=== PATIENT | female | born 1945 | race Caucasian/White ===

== ENCOUNTER → 2016-08-06 | Outpatient (CLI) | payer MEDICARE, OTHER ==
[~2016-08-06] MED LIST: IOHEXOL 100 ML ONE; IOHEXOL 350MG/ML 50 ML BTL ONE; METOPROLOL 100 MG TAB ONE; NITROGLYCERIN AEROSOL (4.9 GM) ONE; SOD CHLORIDE 0.9% 100 ML ONE
--- NOTE | 2016-08-07 11:49 | RADRPT ---
PROCEDURE: CTA OF THE HEART AND CORONARY ARTERIES WITH CONTRAST CT CALCIUM SCORE CLINICAL INDICATION: Chest pain COMPARISON: No previous relevant images are available for comparison. TECHNIQUE: CT calcium score performed without intravenous contrast. Multiphasic ECG-gated volumetri c acquisition from the ascending aorta to the diaphragm performed with intravenous contrast on a hig h-resolution multi detector scanner with multiphasic reconstructions. Multiplanar reconstructions, t hree-dimensional reconstructions, as well as maximal intensity projection images are produced and re viewed. One or more of the following dose reduction techniques were used: Automated exposure control ; Adjustment of the mA and/or kV according to patient size; Use of iterative reconstruction techniqu e; ECG dose modulation. CTDI = 8, 2, 29, 69 mGy. DLP = 1153 mGy-cm. Stenosis classification of vessels greater than 1.5 mm in diameter: None0% Minimal1-24% Trpg30-12% Nksvocsx63-22% Ewunji66-46% Hhlwzesz838% (When a vessel appears focally occluded with distal reconstitution there may be trac e patency which is below the resolution of the examination or collateral pathways may exist.) CONTRAST: 100 mL of Omnipaque 350 intravenously without adverse event. FINDINGS: CORONARY CT ANGIOGRAM: Overall quality of the CT angiographic examination is degraded due to the late phase of enhancement which is predominantly venous, peak aortic enhancement of 232 HU. This was due to difficulty with b reath holding obstruction due to language barrier. Normal origins of the coronary arteries are present. The coronary artery system is right dominant. Total calcium score: 1137.9 Right Coronary Artery: Severe diffuse calcification obscures adequate visualization of luminal enhan cement. Left Main Coronary Artery: Very short segment vessel due to nearly immediate bifurcation. Small lala que does not produce any significant stenosis. Left Anterior Descending Coronary Artery: Calcified plaque within the proximal segment of the vessel produces up to 25% stenosis. Dense confluent calcifications in the mid and distal segments of the vessel obscure visualization of the lumen. Visualized septal and diagonal branches: Dense calcification obscures visualization of the origin of the first diagonal branch. Left Circumflex Coronary Artery: Multifocal calcified and noncalcified plaques produce approximately 50% ; visualization partially degraded due to the nearly concentric nature of these lesions. Visualized obtuse marginal branches: Small-caliber vessels which are not well visualized. Normal appearance of the pericardium. No pericardial effusion. Mild thickening and sclerosis of the trileaflet aortic valve. Minimal thickening of the mitral valv e leaflets. Myocardial attenuation appears within normal limits. Left atrial appendage is well opacified. No evidence of intracardiac mass or thrombus. EXTRACARDIAC FINDINGS: Thoracic aorta: Normal caliber. Pulmonary vessels: Normal caliber pulmonary arteries. No evidence of central filling defect. Conven tional pulmonary venous return. Chest: The visualized lung parenchyma is unremarkable. No mediastinal lymphadenopathy. Abdomen: Incidental imaging of the upper abdomen is unremarkable. IMPRESSION: Total calcium score: 1137.9 Right Coronary Artery: Severe diffuse calcification obscures adequate visualization of luminal enhan cement. Left Main Coronary Artery: Very short segment vessel due to nearly immediate bifurcation. Small lala que does not produce any significant stenosis. Left Anterior Descending Coronary Artery: Calcified plaque within the proximal segment of the vessel produces up to 25% stenosis. Dense confluent calcifications in the mid and distal segments of the vessel obscure visualization of the lumen. Left Circumflex Coronary Artery: Multifocal calcified and noncalcified plaques produce approximately 50% ; visualization partially degraded due to the nearly concentric nature of these lesions. Given these findings additional imaging with nuclear perfusion imaging SPECT/PET or as clinically in dicated conventional coronary angiography suggested for further evaluation. RPTAT: AADD .Sandro Casanova MD, MD Date Time Electronically viewed and signed by .Sandro Casanova MD, on 08/07/2016 11:49 .B/
== END | disposition home or self-care (01) ==
LOC: C/S 09:39
PROVIDERS: ATTEND Internal Medicine Cardiovascular Disease
DX: I25.10 Atherosclerotic heart disease of native coronary artery without angina pectoris (principal); R07.9 Chest pain, unspecified; R06.02 Shortness of breath; I35.8 Other nonrheumatic aortic valve disorders
CPT/HCPCS: 75571; 75574; Q9967

== ENCOUNTER → 2018-03-28 | Outpatient (CLI) | payer MEDICARE, OTHER ==
[~2018-03-28] MED LIST changes: +IODIXANOL LOCM 100 ML BTL ONE; -IOHEXOL 100 ML ONE; -METOPROLOL 100 MG TAB ONE
--- NOTE | 2018-03-28 13:54 | NUR ---
Procedure Ordered: CTA CARDIAC ANGIOGRAM Reason for Exam Today: CHEST PAIN SOB Previous Exams: Allergies: NKA Current Medications Taken: Glucophage ( ) Metformin ( ) Previous reaction to contrast media: Yes ( ) No ( ) : Yes ( ) No (X ) Asthma: Yes ( ) No (X ) Diabetes: Yes ( ) No ( X) Myeloma: Yes ( ) No ( X) Heart Disease: Yes (X ) No ( ) Cardiac Disease: Yes ( X) No (X ) Kidney Disease: Yes ( ) No (X ) Vascular Disease: Yes ( X) No ( ) Patient Teaching done: Yes ( ) No ( ) Poultry Hatchery Supervisor Used: Yes ( ) No ( ) Name of Poultry Hatchery Supervisor: Language Used: As part of the test requested by your doctor, contrast media may be injected into your vein while the x-rays are being taken. Occasionally, reactions from IV contrast may occur. The physician and staff of this hospital are trained to treat these reactions. Select the type of Contrast that will be given to patient: Isovue 300 ( ) Isovue 370 ( ) Visipaque ( ) Cystografin ( ) Gastrographin ( ) Redi-cat ( ) Volumen ( ) Amount of contrast to be given: [id number]: 100CC IV IV ( ) PO ( ) Date given: 03.28.18 Lab Values: BUN: 23 Creatinine: 0.93 Reason why contrast cannot be given: Location of patient pre-procedure: OUT PT Location of patient post procedure: OUT PT
== END | disposition home or self-care (01) ==
LOC: LAB 11:47
PROVIDERS: ATTEND Internal Medicine Interventional Cardiology
DX: R07.9 Chest pain, unspecified (principal); R06.02 Shortness of breath
CPT/HCPCS: 75574; 80048; Q9967

== ENCOUNTER → 2018-07-12 | Outpatient (CLI) | payer MEDICARE | END | disposition home or self-care (01) | LOC: LAB 09:22 → GIL 09:33 | PROVIDERS: ATTEND Internal Medicine | DX: R76.8 Other specified abnormal immunological findings in serum (principal); R07.9 Chest pain, unspecified | CPT/HCPCS: 80048 ==

== ENCOUNTER → 2018-07-18 | Outpatient (CLI) | payer MEDICARE, OTHER ==
[~2018-07-18] MED LIST changes: -IODIXANOL LOCM 100 ML BTL ONE; +IOHEXOL 100 ML ONE; -IOHEXOL 350MG/ML 50 ML BTL ONE; +NITROGLYCERIN AEROSOL (4.9 GM) SL ONE
== END | disposition home or self-care (01) ==
LOC: C/S 09:53
PROVIDERS: ATTEND Internal Medicine
DX: R94.39 Abnormal result of other cardiovascular function study (principal); R07.9 Chest pain, unspecified
CPT/HCPCS: 75571; 75574; Q9967